=== PATIENT | female | born 1970 | race Caucasian/White ===

== ENCOUNTER 2020-10-05 10:29 | Outpatient (CLI) | payer BC | END 2020-10-05 10:30 | disposition home or self-care (01) | LOC: CSHCT 10:29 | PROVIDERS: ATTEND Physician Assistant Medical | DX: K56.50 Intestinal adhesions [bands], unspecified as to partial versus complete obstruction (principal); K59.89 Other specified functional intestinal disorders | CPT/HCPCS: 74178 ==